=== PATIENT | male | born 1970 | race Caucasian/White ===

== ENCOUNTER → 2021-12-07 | Day surgery (SDC) | payer OTHER ==
[~2021-12-07] VITALS: Ht 175.3 cm; Wt 86.2 kg
[~2021-12-07] MED LIST: ATORVASTATIN CA10 MG PO; DAILY VALUE1 EACH PO; ENBREL50 MG/1 M1 SC; LOVAZA1 GM PO; NORVASC5 MG PO
== END | disposition home or self-care (01) ==
LOC: FAS 08:56
DX: Z12.11 Encounter for screening for malignant neoplasm of colon (principal); K57.30 Diverticulosis of large intestine without perforation or abscess without bleeding; Z80.0 Family history of malignant neoplasm of digestive organs; Z86.010 Personal history of colon polyps; Z72.0 Tobacco use
CPT/HCPCS: J2704; J7120